=== PATIENT | female | born 1945 ===

== ENCOUNTER 2022-04-03 11:45 | Inpatient (IN) | payer OTHER ==
[~2022-04-03] VITALS: Ht 157.5 cm; Wt 97.5 kg
[2022-04-03] MEDS ORDERED: AMLODIPINE BESY10 MG PO (13:47)
[2022-04-03] MEDS ORDERED: SYNTHROID100 MCG PO (13:51)
[2022-04-03] MEDS ORDERED: GABAPENTIN100 M2 PO (13:51)
[2022-04-03] MEDS ORDERED: ZOCOR40 MG PO (13:51)
[2022-04-08] MEDS ORDERED: AMLODIPINE-BEN1 EAC4 (09:52)
[2022-04-08] MEDS ORDERED: NABUMETONE750 MG (09:52)
[2022-04-08] MEDS ORDERED: SIMVASTATIN20 MG (09:53)
== END 2022-04-11 16:23 | DRG 470 ==
LOC: O/R 04-08 05:35 → SURH 04-08 05:35 → SURG 04-08 07:00 → SURH 04-08 14:06
PROVIDERS: ADMIT Orthopaedic Surgery; ATTEND Orthopaedic Surgery
PROC: 0SRD0J9 Replacement of Left Knee Joint with Synthetic Substitute, Cemented, Open Approach (ICD-10-PCS; principal; 2022-04-08 07:00)
DX: M17.12 Unilateral primary osteoarthritis, left knee (principal); D62 Acute posthemorrhagic anemia; M85.662 Other cyst of bone, left lower leg; I10 Essential (primary) hypertension; Z96.651 Presence of right artificial knee joint